=== PATIENT | female | born 1955 | race Two or more races ===

== ENCOUNTER 2020-09-07 11:51 | Emergency (ER) | payer MEDICAID ==
[~2020-09-07] VITALS: Ht 160 cm; Wt 90.7 kg
[2020-09-07] MEDS ORDERED: ACETAMINOPHEN 500MG TABLET PO ONE (12:30)
[2020-09-07 12:57] VITALS: BP 112/60
== END 2020-09-07 12:50 | disposition home or self-care (01) ==
LOC: ER 11:51
DX: U07.1 COVID-19 (principal); E78.00 Pure hypercholesterolemia, unspecified
CPT/HCPCS: 87635; 99282; C9803

== ENCOUNTER 2020-09-14 10:22 | Inpatient (IN) | payer MEDICAID ==
[~2020-09-14] VITALS: Ht 170.2 cm; Wt 80.7 kg
[2020-09-14 13:25] LABS: BASOPHILS % 0.2 % (0.0-2.0); HEMATOCRIT. 38.5 % (36.0-48.0); HEMOGLOBIN. 12.9 g/dL (12.0-16.0); LYMPHOCYTES % 11.6 % (20.0-50.0); MEAN CORPUSCULAR HEMOGLOBIN 29.8 pg (28.0-32.0); MEAN CORPUSCULAR VOLUME 89.5 fL (81.0-99.0); MONOCYTES % 7.3 % (2.0-8.0); NEUTROPHILS % 80.9 % (40.0-76.0); PLATELET 176 x1000/uL (130-400); RED BLOOD CELL COUNT 4.31 mill/uL (4.2-5.4); RED CELL DISTRIBUTION WIDTH 13.4 % (11.6-14.6)
[2020-09-14 13:33] LABS: CHLORIDE 102 mEq/L (98-107)
[2020-09-14] MEDS ORDERED: FUROSEMIDE 20MG/2ML VIAL IVP ONE (15:30)
[2020-09-14] MEDS ORDERED: LORAZEPAM 2MG/ML CPJ IV PRN (22:15)
[2020-09-14] MEDS ORDERED: HYDROCODONE/ACETAMINOPHEN 5/325MG TABLET PO PRN (22:15)
[2020-09-14] MEDS ORDERED: CLONIDINE 0.1MG TABLET PO PRN (22:15)
[2020-09-14] MEDS ORDERED: ONDANSETRON HCL 4MG/2ML INJ IV PRN (22:15)
[2020-09-14] MEDS ORDERED: MORPHINE SULFATE 2 MG/ML CPJ (NOT FOR IM USE) IV PRN (22:15)
[2020-09-14] MEDS ORDERED: DOCUSATE SODIUM 100MG CAPSULE PO PRN (22:15)
[2020-09-14] MEDS ORDERED: IPRATROPIUM/ALBUTEROL 0.5-3(2.5)MG/3ML NEB NEB PRN (22:15)
[2020-09-15 06:28] VITALS: BP 129/38
[2020-09-15] MEDS: ACETAMINOPHEN 650MG/20.3ML UDC GT PRN ×2 (06:36→22:56)
[2020-09-15 07:50] VITALS: BP 130/74
[2020-09-15 08:00] VITALS: BP 111/50
[2020-09-15] MEDS: ENOXAPARIN 40MG/0.4ML SYR SUBCUT SCH (09:38)
[2020-09-15] MEDS: FOLIC ACID 1MG TABLET PO SCH (09:39)
[2020-09-15] MEDS: FUROSEMIDE 40MG/4ML VIAL IVP SCH (09:39)
[2020-09-15 12:00] VITALS: BP 118/61
[2020-09-15 16:00] VITALS: BP 110/56
[2020-09-15 16:14] LABS: BASOPHILS % 0.2 % (0.0-2.0); HEMATOCRIT. 34.3 % (36.0-48.0); HEMOGLOBIN. 11.9 g/dL (12.0-16.0); LYMPHOCYTES % 16.3 % (20.0-50.0); MEAN CORPUSCULAR HEMOGLOBIN 30.3 pg (28.0-32.0); MEAN CORPUSCULAR VOLUME 87.4 fL (81.0-99.0); MEAN PLATELET VOLUME 8.5 fl (7.4-10.4); MONOCYTES % 10.9 % (2.0-8.0); NEUTROPHILS % 72.6 % (40.0-76.0); PLATELET 218 x1000/uL (130-400); RED BLOOD CELL COUNT 3.93 mill/uL (4.2-5.4); RED CELL DISTRIBUTION WIDTH 13.4 % (11.6-14.6)
[2020-09-15 16:17] LABS: CHLORIDE 101 mEq/L (98-107)
[2020-09-15 16:23] LABS: PHOSPHORUS 2.7 mg/dL (2.5-4.9)
[2020-09-15] MEDS ORDERED: AZITHROMYCIN 500 MG in DEXT 5% WATER 250 ML IV NR (18:00)
[2020-09-15] MEDS: CEFTRIAXONE 1,000 MG in DEXTROSE 5% WATER 50 ML IV SCH (18:38)
[2020-09-15 20:00] VITALS: BP 115/54
[2020-09-16] VITALS: BP 112/46
[2020-09-16 04:00] VITALS: BP 115/55
[2020-09-16 08:00] VITALS: BP 111/55
[2020-09-16] MEDS ORDERED: PNEUMOCOCCAL 23-VAL P-SAC VAC 0.5 ML IM ONE (08:00)
[2020-09-16] MEDS: FOLIC ACID 1MG TABLET PO SCH (09:32)
[2020-09-16] MEDS: ENOXAPARIN 40MG/0.4ML SYR SUBCUT SCH (09:33)
[2020-09-16] MEDS: FUROSEMIDE 40MG/4ML VIAL IVP SCH (09:33)
[2020-09-16 12:00] VITALS: BP 109/55
[2020-09-16 16:00] VITALS: BP 117/62
[2020-09-16] MEDS: CEFTRIAXONE 1,000 MG in DEXTROSE 5% WATER 50 ML IV SCH (17:38)
[2020-09-16] MEDS: AZITHROMYCIN 250 MG in DEXT 5% WATER 250 ML IV SCH (17:38)
[2020-09-16] MEDS: POTASSIUM CHLORIDE 20MEQ TABLET SR PO SCH (17:38)
[2020-09-16 20:00] VITALS: BP 122/62
[2020-09-17] VITALS: BP 111/49
[2020-09-17 04:00] VITALS: BP 114/57
[2020-09-17 08:00] VITALS: BP 121/61
[2020-09-17 08:16] LABS: BASOPHILS % 0.2 % (0.0-2.0); EOSINOPHILS % 0.1 % (0.0-5.0); HEMATOCRIT. 35.3 % (36.0-48.0); HEMOGLOBIN. 12.4 g/dL (12.0-16.0); LYMPHOCYTES % 14.9 % (20.0-50.0); MEAN CORPUSCULAR HEMOGLOBIN 30.7 pg (28.0-32.0); MEAN CORPUSCULAR VOLUME 87.4 fL (81.0-99.0); MEAN PLATELET VOLUME 7.9 fl (7.4-10.4); MONOCYTES % 12.2 % (2.0-8.0); NEUTROPHILS % 72.6 % (40.0-76.0); PLATELET 347 x1000/uL (130-400); RED BLOOD CELL COUNT 4.04 mill/uL (4.2-5.4); RED CELL DISTRIBUTION WIDTH 13.3 % (11.6-14.6)
[2020-09-17 08:30] LABS: CHLORIDE 102 mEq/L (98-107)
[2020-09-17] MEDS: DEXAMETHASONE 4MG/ML 1ML VIAL IV SCH (09:19)
[2020-09-17] MEDS: FOLIC ACID 1MG TABLET PO SCH (09:19)
[2020-09-17] MEDS: POTASSIUM CHLORIDE 20MEQ TABLET SR PO SCH (09:30)
[2020-09-17] MEDS: ENOXAPARIN 40MG/0.4ML SYR SUBCUT SCH (09:30)
[2020-09-17 11:23] LABS: BG BASE EXCESS 3.9 mmol/L (-2.0-2.0); BG CARBOXYHEMOGLOBIN 0.4 % (0.5-1.5); BG DEOXYHEMOGLOBIN 9.2 % (0.0-5.0); BG FRACTION INSPIRED OXYGEN 28; BG HCO3 ACT 28.1 mmol/L (22.0-26.0); BG OXYGEN SATURATION 90.8 % (92.0-98.5); BG OXYHEMOGLOBIN 90.4 % (94.0-97.0); BG PCO2 40.8 mmHg (35.0-45.0); BG PH 7.456 (7.350-7.450); BG PO2 56.2 mmHg (75.0-100.0); BG SAMPLE SITE RIGHT RADIAL; BG TOTAL HEMOGLOBIN 12.8 g/dL (12.0-18.0); BG VENT MODE NASAL CANNULA
[2020-09-17 12:00] VITALS: BP 109/60
[2020-09-17 16:00] VITALS: BP 115/65
[2020-09-17] MEDS: AZITHROMYCIN 250 MG in DEXT 5% WATER 250 ML IV SCH (17:42)
[2020-09-17] MEDS: CEFTRIAXONE 1,000 MG in DEXTROSE 5% WATER 50 ML IV SCH (17:42)
[2020-09-17 20:00] VITALS: BP 127/60
[2020-09-17] MEDS: ACETAMINOPHEN 650MG/20.3ML UDC GT PRN (21:32)
[2020-09-17] MEDS: SODIUM CHLORIDE 0.9% 1,000 ML IV SCH (23:45)
[2020-09-18] VITALS: BP 128/62
[2020-09-18 04:00] VITALS: BP 137/56
[2020-09-18 08:00] VITALS: BP 159/73
[2020-09-18] MEDS: FOLIC ACID 1MG TABLET PO SCH (08:30)
[2020-09-18] MEDS: POTASSIUM CHLORIDE 20MEQ TABLET SR PO SCH (08:30)
[2020-09-18] MEDS: ENOXAPARIN 40MG/0.4ML SYR SUBCUT SCH (08:30)
[2020-09-18] MEDS: DEXAMETHASONE 4MG/ML 1ML VIAL IV SCH (08:30)
[2020-09-18 12:00] VITALS: BP 138/72
[2020-09-18 13:56] LABS: BG BASE EXCESS -3.7 mmol/L (-2.0-2.0); BG CARBOXYHEMOGLOBIN 0.2 % (0.5-1.5); BG DEOXYHEMOGLOBIN 11.9 % (0.0-5.0); BG FRACTION INSPIRED OXYGEN 21; BG HCO3 ACT 19.4 mmol/L (22.0-26.0); BG METHEMOGLOBIN 0.1 % (0.0-1.5); BG OXYGEN SATURATION 88.1 % (92.0-98.5); BG OXYHEMOGLOBIN 87.8 % (94.0-97.0); BG PCO2 29.7 mmHg (35.0-45.0); BG PH 7.433 (7.350-7.450); BG PO2 52.7 mmHg (75.0-100.0); BG SAMPLE SITE RIGHT RADIAL; BG TOTAL HEMOGLOBIN 13.1 g/dL (12.0-18.0); BG VENT MODE ROOM AIR
[2020-09-18] MEDS: SODIUM CHLORIDE 0.9% 1,000 ML IV SCH (14:36)
[2020-09-18 16:00] VITALS: BP 133/76
[2020-09-18] MEDS: CEFTRIAXONE 1,000 MG in DEXTROSE 5% WATER 50 ML IV SCH (17:55)
[2020-09-18] MEDS: AZITHROMYCIN 250 MG in DEXT 5% WATER 250 ML IV SCH (17:55)
[2020-09-18 20:00] VITALS: BP 118/62
[2020-09-18] MEDS: ACETAMINOPHEN 650MG/20.3ML UDC GT PRN (23:58)
[2020-09-19] VITALS: BP 128/60
[2020-09-19 04:00] VITALS: BP 125/66
[2020-09-19 08:00] VITALS: BP 147/70
[2020-09-19] MEDS: SODIUM CHLORIDE 0.9% 1,000 ML IV SCH (09:04)
[2020-09-19] MEDS: FOLIC ACID 1MG TABLET PO SCH (09:05)
[2020-09-19] MEDS: POTASSIUM CHLORIDE 20MEQ TABLET SR PO SCH (09:05)
[2020-09-19] MEDS: DEXAMETHASONE 4MG/ML 1ML VIAL IV SCH (09:05)
[2020-09-19] MEDS: ENOXAPARIN 40MG/0.4ML SYR SUBCUT SCH (09:05)
[2020-09-19 11:29] VITALS: BP 143/67
[2020-09-19 16:00] VITALS: BP 139/65
[2020-09-19] MEDS: AZITHROMYCIN 250 MG in DEXT 5% WATER 250 ML IV SCH (17:06)
[2020-09-19] MEDS: CEFTRIAXONE 1,000 MG in DEXTROSE 5% WATER 50 ML IV SCH (17:06)
[2020-09-19 20:00] VITALS: BP 125/67
[2020-09-20 04:00] VITALS: BP 115/68
[2020-09-20 08:00] VITALS: BP 109/53
[2020-09-20] MEDS: FOLIC ACID 1MG TABLET PO SCH (09:13)
[2020-09-20] MEDS: DEXAMETHASONE 4MG/ML 1ML VIAL IV SCH (09:13)
[2020-09-20] MEDS: ENOXAPARIN 40MG/0.4ML SYR SUBCUT SCH (09:14)
[2020-09-20] MEDS: POTASSIUM CHLORIDE 20MEQ TABLET SR PO SCH (09:15)
[2020-09-20 12:00] VITALS: BP 104/60
[2020-09-20 16:00] VITALS: BP 110/59
[2020-09-20 20:00] VITALS: BP 119/51
[2020-09-21] VITALS: BP 120/57
[2020-09-21 04:00] VITALS: BP 124/58
[2020-09-21 08:00] VITALS: BP 114/52
[2020-09-21] MEDS: FOLIC ACID 1MG TABLET PO SCH ×2 (09:27→09:31)
[2020-09-21] MEDS: ENOXAPARIN 40MG/0.4ML SYR SUBCUT SCH ×2 (09:28→09:31)
[2020-09-21] MEDS: DEXAMETHASONE 4MG/ML 1ML VIAL IV SCH (09:30)
[2020-09-21] MEDS: POTASSIUM CHLORIDE 20MEQ TABLET SR PO SCH (09:30)
[2020-09-21 12:00] VITALS: BP 110/44
[2020-09-21 16:00] VITALS: BP 113/58
[2020-09-21 20:00] VITALS: BP 113/51
[2020-09-22] VITALS: BP 109/54
[2020-09-22 04:00] VITALS: BP 104/41
[2020-09-22 08:00] VITALS: BP 126/70
[2020-09-22] MEDS: POTASSIUM CHLORIDE 20MEQ TABLET SR PO SCH (08:06)
[2020-09-22] MEDS: DEXAMETHASONE 4MG/ML 1ML VIAL IV SCH (08:06)
[2020-09-22 12:00] VITALS: BP 102/50
[2020-09-22] MEDS ORDERED: BENZ-16 MT (15:22)
[2020-09-22] MEDS ORDERED: ALBU18HF2 IH (15:22)
[2020-09-22 15:47] VITALS: BP 115/72
== END 2020-09-22 18:09 | disposition home or self-care (01) | DRG 720 ==
LOC: ER 10:22 → MICUSO 18:04 → EDBEDREQTM 18:14 → EDBEDREQ 18:14 → 7WST 09-15 03:07
PROVIDERS: ADMIT Internal Medicine Nephrology; ATTEND Internal Medicine Nephrology
DX: A41.89 Other specified sepsis (principal); U07.1 COVID-19; E44.0 Moderate protein-calorie malnutrition; E87.6 Hypokalemia; J12.89 Other viral pneumonia; I10 Essential (primary) hypertension; J96.01 Acute respiratory failure with hypoxia; R74.01 Elevation of levels of liver transaminase levels; I95.9 Hypotension, unspecified; Z90.49 Acquired absence of other specified parts of digestive tract; Z68.27 Body mass index [BMI] 27.0-27.9, adult
CPT/HCPCS: 36415; 36600; 71045; 76705; 80048; 80053; 82375; 82728; 82805; 83036; 83615; 83735; 83880; 84100; 84484; 85025; 85379; 86140; 87635; 99285; J0456; J0696; J1100; J1650; J1940; J7030; J7040; J7060

== ENCOUNTER 2022-07-08 22:48 | Emergency (ER) | payer MEDICAID ==
[~2022-07-08] VITALS: Ht 162.6 cm; Wt 91.0 kg
[~2022-07-08 22:48] MED LIST: ALBU18HF2 IH; BENZ-16 MT
[2022-07-09] MEDS ORDERED: BENZ1LOZ73 MT (01:43)
[2022-07-09 01:57] VITALS: BP 117/75
== END 2022-07-09 01:58 | disposition home or self-care (01) ==
LOC: ER 22:48
DX: R05.9 Cough, unspecified (principal); Z20.822 Contact with and (suspected) exposure to COVID-19; J06.9 Acute upper respiratory infection, unspecified; E11.9 Type 2 diabetes mellitus without complications; E78.00 Pure hypercholesterolemia, unspecified; Z90.49 Acquired absence of other specified parts of digestive tract
CPT/HCPCS: 71045; 87426; 99284; C9803